=== PATIENT | male | born 1950 | race Caucasian/White ===

== ENCOUNTER 2022-11-20 08:50 | Outpatient (RCR) | payer MEDICARE, SELFPAY | END 2022-12-19 16:36 | disposition home or self-care (01) | LOC: ST 08:50 | PROVIDERS: Family Provider Internal Medicine | DX: G20 Parkinson's disease (principal); R47.9 Unspecified speech disturbances; R49.9 Unspecified voice and resonance disorder | CPT/HCPCS: 92507; 92523 ==

== ENCOUNTER 2023-01-14 07:51 | Outpatient (RCR) | payer MEDICARE, SELFPAY | END 2023-01-14 16:36 | disposition home or self-care (01) | LOC: OT 07:51 | PROVIDERS: Family Provider Internal Medicine | DX: G20.C Parkinsonism, unspecified (principal) | CPT/HCPCS: 97165; 97530 ==